=== PATIENT | male | born 1965 | race Caucasian/White ===

== ENCOUNTER → 2019-02-10 | Outpatient (CLI) | payer BC ==
--- NOTE | 2019-02-10 16:38 | PCVCIMAG ---
APPROVED REPORT Study performed: 02/10/2019 14:49:23 EXAM: Comprehensive 2D, Doppler, and color-flow Echocardiogram Patient Location: Echo lab Status: routine BSA: 2.17 HR: 71 bpmBP: 130/80 mmHg Rhythm: NSR Other Information Study Quality: Adequate Risk Factors: Cardiac Risk Factors: HTN Indications aortic stenosis, bicuspid aortic valve, aortic insufficiency 2D Dimensions IVSd: 14.48 (7-11mm)LVOT Diam: 23.37 (18-24mm) LVDd: 46.59 mm PWd: 14.29 (7-11mm)Ascending Ao: 39.89 (22-36mm) LVDs: 31.50 (25-40mm) Left Atrium: 46.50 (27-40mm) Aortic Root: 36.63 mm LV Single Plane 4CH: 62.99 % LV Single Plane 2CH: 64.92 % Biplane EF: 63.9 % Volumes Left Atrial Volume (Systole) Single Plane 4CH: 118.44 mLSingle Plane 2CH: 94.03 mL LA ESV Index: 51.00 mL/m2 Aortic Valve AoV Peak Husam.: 3.68 m/s AO Peak Gr.: 54.20 mmHgLVOT Max P.25 mmHg AO Mean Gr.: 29.94 mmHgLVOT Mean P.52 mmHg AO V2 Mean: 2.60 m/sLVOT Max V: 1.25 m/s AO V2 VTI: 80.74 cmLVOT Mean V: 0.88 m/s LUIS ALBERTO (VTI): 1.42 [id number] V1 VTI: 26.82 cm LUIS ALBERTO Vmax: 1.46 cm2 AI Vmax: 5.03 m/sSV (LVOT): 114.95 mL AI Franklin: 3.31 m/s2 AI PHT: 442.73 ms Mitral Valve E/A Ratio: 1.3 MV Decel. Time: 281.70 ms MV E Max Husam.: 1.15 m/s MV A Husam.: 0.91 m/s IVRT: 110.73 ms Pulmonary Valve PV Peak Husam.: 1.15 m/sPV Peak Gr.: 5.30 mmHg Pulmonary Vein P Vein S: 0.41 m/sP Vein A: 0.26 m/s P Vein D: 0.44 m/sP Vein A Dur.: 128.0 msec P Vein S/D Ratio: 0.93 Tricuspid Valve TR Peak Husam.: 2.57 m/s TR Peak Gr.: 26.33 mmHg Left Ventricle The left ventricle is normal size. There is normal LV segmental wall motion. Moderate concentric left ventricular hypertrophy. Left ventricular systolic function is normal. The left ventricular ejection fraction is within the normal range. LVEF is 65%. Mild diastolic dysfunction is present (impaired relaxation pattern). Right Ventricle The right ventricle is normal size. The right ventricular systolic function is normal. Atria Left atrium is mildly dilated. Right atrium is mildly dilated. Aortic Valve The aortic valve is bicuspid, moderately calcified and stenotic. Mild-moderate aortic regurgitation. Calculated aortic valve area is 1.5 cm2 with maximum pressure gradient of 54 mmHg and mean pressure gradient of 30 mmHg. Mitral Valve Mitral valve leaflets are calcified. Mild to moderate mitral annular calcification Mild mitral regurgitation. No evidence of mitral valve stenosis. Tricuspid Valve The tricuspid valve is normal in structure. Mild tricuspid regurgitation with PAP of 30 mmHg. Pulmonic Valve The pulmonary valve is normal in structure. There is no pulmonic valvular regurgitation. Great Vessels The aortic root is normal in size. 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 IVC is normal in size and collapses >50% with inspiration. Pericardium There is no pericardial effusion. There is no pleural effusion. <Conclusion> Left ventricular systolic function is normal. There is normal LV segmental wall motion. LVEF is 65%. Mild diastolic dysfunction Both atria are mildly dilated. The aortic valve is bicuspid, moderately calcified and stenotic. Mild-moderate aortic regurgitation. Calculated aortic valve area is 1.5 cm2 with maximum pressure gradient of 54 mmHg and mean pressure gradient of 30 mmHg. Mitral valve leaflets are calcified. Mild to moderate mitral annular calcification. Mild mitral regurgitation. Mild tricuspid regurgitation with pulmonary artery pressure of 30 mmHg. 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 There is no pericardial effusion.
== END | disposition home or self-care (01) ==
LOC: PCVCIMAG 14:46
PROVIDERS: ATTEND Internal Medicine
DX: I11.9 Hypertensive heart disease without heart failure (principal); I08.3 Combined rheumatic disorders of mitral, aortic and tricuspid valves; E78.5 Hyperlipidemia, unspecified; E66.9 Obesity, unspecified; F17.210 Nicotine dependence, cigarettes, uncomplicated; Z72.89 Other problems related to lifestyle; Z90.09 Acquired absence of other part of head and neck
CPT/HCPCS: 93306